=== PATIENT | male | born 1970 | race African-American/Black ===

== ENCOUNTER 2017-02-26 18:15 | Emergency (ER) | payer SELFPAY ==
[~2017-02-26] VITALS: Ht 175.3 cm; Wt 102.0 kg
[~2017-02-26 18:15] MED LIST: COLCHICINE0.6 M2 PO; INDOCIN25 MG PO; PERCOCET 5/321 COMBO PO
[2017-02-26] MEDS ORDERED: ALLOPURINOL300 MG PO (18:41)
[2017-02-26 18:53] VITALS: BP 152/91
== END 2017-02-26 19:10 | disposition home or self-care (01) | DRG 605 ==
LOC: ED 18:15
DX: S81.832A Puncture wound without foreign body, left lower leg, initial encounter (principal); I83.92 Asymptomatic varicose veins of left lower extremity; X58.XXXA Exposure to other specified factors, initial encounter

== ENCOUNTER 2023-02-23 10:40 | Observation (INO) | payer BC ==
[~2023-02-23] VITALS: Ht 175.3 cm; Wt 96.1 kg
[2023-02-23] VITALS (23 sets, daily range): BP systolic 144–209; BP diastolic 89–126
[~2023-02-23 10:40] MED LIST changes: +ALLOPURINOL300 MG PO
--- NOTE | 2023-02-23 10:45 | NUR ---
PT AMBULATED TO ROOM 11 W/O DIFFICULTY, AT SIDE, CALL LIGHT IN REACH, PROVIDER NOTIFIED.
[2023-02-23 11:42] LABS: BASO% 0.4 % (0-3); EOS% 1.5 % (0-8); HEMATOCRIT 42.8 % (39.0-50.0); HEMOGLOBIN 14.3 g/dl (14.0-18.0); IMMATURE GRANULOCYTES 0.1 % (0.0-5.0); LYMPH% 30.1 % (15-41); MEAN CORPUSCULAR HGB 30.5 pG CALC (26.0-32.0); MEAN CORPUSCULAR HGB CONC 33.4 g/dL CAL (32.0-36.0); NEUT# 4.32 thou/uL (1.82-7.42); NEUT% 60.9 % (42-76); RED BLOOD COUNT 4.69 mill/uL (4.70-6.10); RED CELL DISTRI WIDTH 13.3 % (11.5-15.5)
[2023-02-23 11:49] LABS: MEAN CELL VOLUME 91.3 fL CALC (80.0-100.0)
[2023-02-23 11:53] LABS: ALBUMIN 4.7 g/dL (3.2-5.0); ALKALINE PHOSPHATASE 141 u/l (38-126); ANION GAP 16 (6-22 (CALC)); BILIRUBIN, TOTAL 1.2 mg/dL (0.2-1.3); BUN 8 mg/dL (9-20); BUN/CREATININE RATIO 12 (12-20 (CALC)); CARBON DIOXIDE 23 mmol/l (22-30); CHLORIDE 101 mmol/l (95-108); CREATININE 0.6 mg/dL (0.7-1.3); GFR FOR AFR.AMER. > 60 ML/MIN (>=60 (CALC)); GFR OTHER RACES > 60 ML/MIN (>=60 (CALC)); POTASSIUM 3.8 mmol/l (3.5-5.1); SGOT/AST 93 u/l (17-59); SODIUM 137 mmol/l (137-146); TOTAL PROTEIN 9.8 g/dL (6.3-8.2)
--- NOTE | 2023-02-23 11:54 | NUR ---
PATIENT MEDICATED AT THIS TIME WITH ASA AND HYDRALIZINE.
--- NOTE | 2023-02-23 12:01 | NUR ---
PATIENT STATES PAIN IN THE CHEST IS A 2 AT THIS TIME HOWEVER HE KEEPS REFERING TO HIS LEFT HIP PAIN BEING A 10/10. BP IMPROVED SINCE IV HYDRALIZINE GIVEN.
--- NOTE | 2023-02-23 14:39 | NUR ---
DR. ARNOLD INFORMED PATIENT OF PENDING ADMISSION. PATIENT ACKNOWLEGED. PATIENT HAS NO C/O PAIN.
--- NOTE | 2023-02-23 15:24 | NUR ---
PT IN STRETCHER WITH FAMILY AT BEDSIDE. PT ADVISED OF CONTINUED WAIT TIMES. PT VERBALIZED UNDERSTANDING .
--- NOTE | 2023-02-23 15:33 | NUR ---
SPOKE TO [facility] ON [facility]. NURSE UNABLE TO TAKE REPORT ON THIS PATIENT AT THIS TIME BECAUSE SHE IS TIED UP WITH ANOTHER NEW ADMISSION. WILL CALL BACK IN 30 MIN.
--- NOTE | 2023-02-23 16:00 | NUR ---
ATTEMPTED TO CALL REPORT AND NURSE UNAVALABLE. CHARGE NURSE AND ER DIRECTOR MADE AWARE. PATIENT REMAINS STABLE, NO DISTRESS.
--- NOTE | 2023-02-23 16:45 | NUR ---
VERBAL REPORT GIVEN TO THIAGO DAWKINS. PATIENT TAKEN TO [facility]
--- NOTE | 2023-02-23 17:15 | NUR ---
PT ARRIVED TO ER FROM MED SURG VIA W/C, REPORT RECIEVED. PT IS ALERT AND ORIENTED X3. PT HAS NO C/O PAIN AT THIS TIME. PT HAS TELE ON WITH ALL LEADS ATTACHED. IV SITE TO RAC CLEAN AND INTACT. PT LUNGS CLEAR THROUGHOUT. ABD DISTENDED AND SOFT WITH UMBILLICAL HERNIA NOTED. PT SKIN DRY AND INTACT. PT AMBULATES WELL TO BATHROOM FOR TOILETING NEEDS. PT IS ORIENTED TO . PT HAS CALL LIGHT AND ALL SAFETY MEAURES IN PLACE AT THIS TIME.
[2023-02-24 00:08] VITALS: BP 140/96
[2023-02-24 02:13] LABS: BASO% 0.5 % (0-3); EOS% 2.1 % (0-8); HEMATOCRIT 38.3 % (39.0-50.0); HEMOGLOBIN 12.6 g/dl (14.0-18.0); IMMATURE GRANULOCYTES 0.2 % (0.0-5.0); MEAN CELL VOLUME 91.6 fL CALC (80.0-100.0); MEAN CORPUSCULAR HGB 30.1 pG CALC (26.0-32.0); MEAN CORPUSCULAR HGB CONC 32.9 g/dL CAL (32.0-36.0); MONO% 7.4 % (2-13); NEUT# 3.89 thou/uL (1.82-7.42); NEUT% 66.8 % (42-76); RED BLOOD COUNT 4.18 mill/uL (4.70-6.10); RED CELL DISTRI WIDTH 13.4 % (11.5-15.5)
[2023-02-24 02:24] LABS: ALKALINE PHOSPHATASE 119 u/l (38-126); ANION GAP 13 (6-22 (CALC)); BILIRUBIN, TOTAL 1.2 mg/dL (0.2-1.3); BUN 7 mg/dL (9-20); BUN/CREATININE RATIO 13 (12-20 (CALC)); CALCULATED LDLCHOLESTEROL 196 mg/dL (62-129 (CALC)); CARBON DIOXIDE 24 mmol/l (22-30); CHLORIDE 104 mmol/l (95-108); CHOLESTEROL HDL RATIO 4.9 (<4.4 (CALC)); CREATININE 0.6 mg/dL (0.7-1.3); GFR FOR AFR.AMER. > 60 ML/MIN (>=60 (CALC)); GFR OTHER RACES > 60 ML/MIN (>=60 (CALC)); HDL CHOLESTEROL 56 mg/dL (39.0-59.0); MAGNESIUM 1.9 mg/dL (1.6-2.3); POTASSIUM 3.8 mmol/l (3.5-5.1); SGOT/AST 67 u/l (17-59); SODIUM 136 mmol/l (137-146); TOTAL CHOLESTEROL 272 mg/dl (0-199); TOTAL PROTEIN 7.9 g/dL (6.3-8.2); TOTAL TRIGLYCERIDES 98 mg/dl (0-149); VLDL CHOLESTROL 20 mg/dl (8-62 (CALC))
[2023-02-24 03:59] VITALS: BP 140/96
[2023-02-24 07:04] VITALS: BP 155/100
--- NOTE | 2023-02-24 07:17 | NUR ---
PT RESTING IN LOW FOWLERS POSITION. A/OX3 HEART RHYHTM ON TELE. RESPIRATIONS ON ROOM AIR. IV SITE NOTED. PT INDEPENDENT. PT DENIES ADDITIONAL NEEDS AT THE TIME ALL SAFETY PRECAUTIONS IN PLACE. CALL LIGHT IN REACH.
[2023-02-24 11:02] VITALS: BP 114/77
--- NOTE | 2023-02-24 12:01 | NUR ---
PT RESTING IN SEMI FOWLERS POSITION PT ABLE TO WALK INDEPENDENTLY DENIES ADDITIONAL NEEDS AT THE TIME.
[2023-02-24] MEDS ORDERED: CARVEDILOL25 MG PO (14:19)
[2023-02-24] MEDS ORDERED: AMLODIPINE BESYL5 MG PO (14:19)
[2023-02-24] MEDS ORDERED: LOSARTAN POTASS50 MG PO (14:19)
--- NOTE | 2023-02-24 16:16 | NUR ---
Discharge instructions given. Patient verbalizes understanding of same. Discharged in stable condition via Ambulatory to Home with staff. All belongings sent with pt. IV REMOVED TELE REMOVED.
== END 2023-02-24 16:14 | disposition home or self-care (01) | DRG 305 ==
LOC: ED 10:40 → ED-I 14:00 → ED 14:36 → MS2 14:37
PROVIDERS: Family Medicine; Nurse Practitioner Family; ADMIT Student in an Organized Health Care Education/Training Program; ATTEND Student in an Organized Health Care Education/Training Program
DX: I16.1 Hypertensive emergency (principal); I10 Essential (primary) hypertension; M10.9 Gout, unspecified
CPT/HCPCS: G0378; J1650

== ENCOUNTER 2024-05-16 11:12 | Emergency (ER) | payer OTHER ==
[2024-05-16] VITALS (15 sets, daily range): BP systolic 153–194; BP diastolic 89–151
[~2024-05-16] VITALS: Ht 175.3 cm; Wt 95.0 kg
[~2024-05-16 11:12] MED LIST changes: +ACETAMINOPHEN325 MG PO; +AMLODIPINE BESY10 MG PO; +AMLODIPINE BESYL5 MG PO; +BAYER ASPIRIN E81 MG PO; +CARVEDILOL12.5 MG PO; +CARVEDILOL25 MG PO; +LOSARTAN POTASS50 MG PO
[2024-05-16] MEDS ORDERED: ORPHENADRINE CITRATE 30 MG/ML AMP IV ONE (12:30)
[2024-05-16] MEDS ORDERED: KETOROLAC TROMETHAMINE 30 MG/ML SDV IV ONE (12:30)
[2024-05-16] MEDS ORDERED: DEXAMETHASONE SOD. PHOSPHATE 10 MG/ML VIAL IV ONE (12:30)
[2024-05-16 13:01] LABS: BASO% 0.1 % (0-3); IMMATURE GRANULOCYTES 0.2 % (0.0-5.0); LYMPH% 11.7 % (15-41); MEAN CELL VOLUME 90.1 fL CALC (80.0-100.0); MEAN CORPUSCULAR HGB 28.6 pG CALC (26.0-32.0); MEAN CORPUSCULAR HGB CONC 31.7 g/dL CAL (32.0-36.0); MONO% 6.8 % (2-13); NEUT# 6.91 thou/uL (1.82-7.42); NEUT% 80.2 % (42-76); RED BLOOD COUNT 4.55 mill/uL (4.70-6.10); RED CELL DISTRI WIDTH 13.3 % (11.5-15.5)
[2024-05-16 13:22] LABS: ALBUMIN 4.5 g/dL (3.2-5.0); BILIRUBIN, TOTAL 1.2 mg/dL (0.2-1.3); CREATININE 0.7 mg/dL (0.7-1.3); POTASSIUM 4.5 mmol/l (3.5-5.1); TOTAL PROTEIN 8.8 g/dL (6.3-8.2)
[2024-05-16] MEDS ORDERED: CARVEDILOL 25 MG/TAB PO ONE (13:30)
[2024-05-16] MEDS ORDERED: amLODIPine BESYLATE 5 MG/TAB PO ONE (13:30)
[2024-05-16] MEDS ORDERED: MEDDOSEPAK PO (14:53)
[2024-05-16] MEDS ORDERED: NAPROXEN500 MG PO (14:53)
[2024-05-16] MEDS ORDERED: METHOCARBAMOL500 MG PO (14:53)
== END 2024-05-16 15:57 | disposition home or self-care (01) | DRG 556 ==
LOC: ED 11:12
PROVIDERS: Nurse Practitioner
DX: M25.552 Pain in left hip (principal); M54.50 Low back pain, unspecified; M79.89 Other specified soft tissue disorders; I10 Essential (primary) hypertension